=== PATIENT | female | born 1960 | race African-American/Black ===

== ENCOUNTER 2017-07-18 02:10 | Emergency (ER) | payer MEDICAID ==
[~2017-07-18] VITALS: Ht 160 cm; Wt 120.4 kg
[2017-07-18] MEDS ORDERED: DIOVAN320 MG PO (02:32)
[2017-07-18] MEDS ORDERED: AMLODIPINE5 MG PO (02:32)
[2017-07-18] MEDS ORDERED: LEVOTHYROXIN75 MCG PO (02:33)
[2017-07-18] MEDS ORDERED: MECLIZINE HCL25 MG PO (02:33)
[2017-07-18] MEDS ORDERED: MAG OXIDE400 MG PO (02:34)
[2017-07-18] MEDS ORDERED: OMEPRAZOLE20 M2 PO (02:34)
[2017-07-18] MEDS ORDERED: GABAPENTIN100 MG PO (02:34)
[2017-07-18] MEDS ORDERED: LASIX 40 MG TAB40 MG PO (02:35)
[2017-07-18] MEDS ORDERED: METFORMIN500 MG PO (02:36)
[2017-07-18] MEDS ORDERED: ATORVASTATIN CA40 MG PO (02:36)
[2017-07-18] MEDS ORDERED: LEVEMIR100 UNIT/M SC ×2 (02:37→02:38)
[2017-07-18] MEDS ORDERED: MICRO-K10 MEQ PO (02:37)
[2017-07-18] MEDS ORDERED: VICTOZA18 MG/3 ML SC (02:39)
[2017-07-18] MEDS ORDERED: HYSINGLA ER20 MG PO (02:41)
[2017-07-18 02:45] LABS: HEMOGLOBIN 11.9 g/dl (12.0-16.0); IMMATURE GRANULOCYTES 0.1 % (0.0-1.0); MEAN CELL VOLUME 80.2 fL CALC (80.0-100.0); MEAN CORPUSCULAR HGB 26.5 pG CALC (26.0-32.0); MEAN CORPUSCULAR HGB CONC 33.1 g/L CALC (32.0-36.0); NEUT# 2.85 thou/uL (2.00-7.15); RED BLOOD COUNT 4.49 mill/uL (4.20-5.60); RED CELL DISTRI WIDTH 13.2 % (11.5-15.5)
[2017-07-18 02:54] LABS: ALBUMIN 3.9 g/dL (3.2-5.0); ALKALINE PHOSPHATASE 37 u/l (38-126); AMYLASE 41 u/l (30-110); ANION GAP 18 (6-22 (CALC)); BILIRUBIN, TOTAL 0.7 mg/dL (0.0-1.4); BUN 16 mg/dL (7-17); BUN/CREATININE RATIO 21 (12-20 (CALC)); CALCIUM 9.5 mg/dL (8.4-10.2); CARBON DIOXIDE 22 mmol/l (22-30); CHLORIDE 110 mmol/l (95-108); CREATININE 0.8 mg/dL (0.5-1.0); GFR > 60 ML/MIN (>=60 (CALC)); GFR FOR AFR.AMER. > 60 ML/MIN (>=60 (CALC)); GLUCOSE 192 mg/dL (65-105); LIPASE 219 u/l (23-300); POTASSIUM 3.1 mmol/l (3.5-5.1); SGOT/AST 22 u/l (14-36); SGPT/ALT 47 u/l (9-52); SODIUM 147 mmol/l (137-146); TOTAL PROTEIN 6.4 g/dL (6.3-8.2)
[2017-07-18 02:56] LABS: PROTHROMBIN TIME 10.5 SECONDS (9.0-12.5)
[2017-07-18 03:18] LABS: URINE BILIRUBIN - DIPSTICK NEGATIVE (NEGATIVE); URINE BLOOD DIPSTICK NEGATIVE (NEGATIVE); URINE CLARITY TURBID; URINE COLOR YELLOW; URINE GLUCOSE - DIPSTICK NEGATIVE (NEGATIVE); URINE KETONE NEGATIVE (NEGATIVE); URINE LEUK ESTERASE NEGATIVE (NEGATIVE); URINE PROTEIN - DIPSTICK NEGATIVE (NEG-TRACE); URINE UROBILINOGEN - DIPSTICK 0.2 E.U./dL (0.2)
[2017-07-18 03:22] LABS: URINE NITRITE - DIPSTICK POSITIVE (Negative)
[2017-07-18 03:25] LABS: URINE BACTERIA MANY hpf; URINE RBC 0-2 RBC/hpf (0-5); URINE SQUAMOUS EPITHELIAL CELL MANY EPI/hpf (0-FEW)
[2017-07-18] MEDS ORDERED: METRONIDAZOL500 MG PO (05:38)
[2017-07-18] MEDS ORDERED: CIPROFLOXACN500 MG PO (05:38)
[2017-07-18] MEDS ORDERED: ZOFRAN ODT4 MG PO (05:38)
[2017-07-18 06:42] VITALS: BP 146/75
== END 2017-07-18 06:50 | disposition home or self-care (01) | DRG 690 ==
LOC: ED 02:10
PROVIDERS: Emergency Medicine
DX: N39.0 Urinary tract infection, site not specified (principal); B96.20 Unspecified Escherichia coli [E. coli] as the cause of diseases classified elsewhere; K42.9 Umbilical hernia without obstruction or gangrene; K52.9 Noninfective gastroenteritis and colitis, unspecified; R11.2 Nausea with vomiting, unspecified; R10.13 Epigastric pain
CPT/HCPCS: Q9967; S0164

== ENCOUNTER 2018-09-23 15:33 | Emergency (ER) | payer OTHER ==
[~2018-09-23] VITALS: Ht 160 cm; Wt 150.0 kg
[~2018-09-23 15:33] MED LIST: AMLODIPINE5 MG PO; ATORVASTATIN CA40 MG PO; CIPROFLOXACN500 MG PO; DIOVAN320 MG PO; GABAPENTIN100 MG PO; HYSINGLA ER20 MG PO; LASIX 40 MG TAB40 MG PO; LEVEMIR100 UNIT/M SC; LEVOTHYROXIN75 MCG PO; MAG OXIDE400 MG PO; MECLIZINE HCL25 MG PO; METFORMIN500 MG PO; METRONIDAZOL500 MG PO; MICRO-K10 MEQ PO; OMEPRAZOLE20 M2 PO; VICTOZA18 MG/3 ML SC; ZOFRAN ODT4 MG PO
[2018-09-23] MEDS ORDERED: DOXYCYC MONO100 M2 PO (16:11)
[2018-09-23] MEDS ORDERED: CHERATUSSIN PO (16:11)
[2018-09-23] MEDS ORDERED: DIFLUCAN100 M1 PO (16:13)
[2018-09-23 16:20] VITALS: BP 142/71
== END 2018-09-23 16:20 | disposition home or self-care (01) ==
LOC: ED 15:33
DX: J06.9 Acute upper respiratory infection, unspecified (principal); J40 Bronchitis, not specified as acute or chronic; B37.3 Candidiasis of vulva and vagina; R09.81 Nasal congestion; R05 Cough; R50.9 Fever, unspecified; R09.89 Other specified symptoms and signs involving the circulatory and respiratory systems; F17.210 Nicotine dependence, cigarettes, uncomplicated

== ENCOUNTER 2019-01-06 16:28 | Emergency (ER) | payer OTHER ==
[~2019-01-06] VITALS: Ht 160 cm; Wt 127.0 kg
[~2019-01-06 16:28] MED LIST changes: +CHERATUSSIN PO; +DIFLUCAN100 M1 PO; +DOXYCYC MONO100 M2 PO
[2019-01-06 17:11] LABS: HEMATOCRIT 35.5 % (37.0-47.0); HEMOGLOBIN 11.3 g/dl (12.0-16.0); IMMATURE GRANULOCYTES 0.3 % (0.0-5.0); MEAN CELL VOLUME 82.2 fL CALC (80.0-100.0); MEAN CORPUSCULAR HGB 26.2 pG CALC (26.0-32.0); MEAN CORPUSCULAR HGB CONC 31.8 g/L CALC (32.0-36.0); NEUT# 3.47 thou/uL (2.00-7.15); RED BLOOD COUNT 4.32 mill/uL (4.20-5.60); RED CELL DISTRI WIDTH 13.6 % (11.5-15.5)
[2019-01-06 17:29] LABS: ALKALINE PHOSPHATASE 48 u/l (38-126); BILIRUBIN, TOTAL 0.5 mg/dL (0.0-1.4); BUN 28 mg/dL (7-17); BUN/CREATININE RATIO 23 (12-20 (CALC)); CARBON DIOXIDE 27 mmol/l (22-30); CHLORIDE 103 mmol/l (95-108); CREATININE 1.2 mg/dL (0.5-1.0); GFR 46 ML/MIN (>=60 (CALC)); GFR FOR AFR.AMER. 56 ML/MIN (>=60 (CALC)); SGOT/AST 37 u/l (14-36)
[2019-01-06 17:32] LABS: ANION GAP 12 (6-22 (CALC)); POTASSIUM 3.8 mmol/l (3.5-5.1); SODIUM 138 mmol/l (137-146)
[2019-01-06 17:41] LABS: MYOGLOBIN 28 ng/mL (0 - 62)
[2019-01-06] MEDS ORDERED: ROBITUSSIN AC10 ML PO (18:42)
[2019-01-06] MEDS ORDERED: FLONASE AL50 MCG/ACT (18:42)
[2019-01-06] MEDS ORDERED: CEPHALEXIN500 M1 PO (18:42)
[2019-01-06] MEDS ORDERED: MEDDOSEPAK PO (18:56)
[2019-01-06 19:32] VITALS: BP 148/55
== END 2019-01-06 19:32 | disposition home or self-care (01) ==
LOC: ED 16:28
PROVIDERS: Emergency Medicine
DX: J06.9 Acute upper respiratory infection, unspecified (principal); I10 Essential (primary) hypertension; J44.9 Chronic obstructive pulmonary disease, unspecified; E11.9 Type 2 diabetes mellitus without complications; E03.9 Hypothyroidism, unspecified; F17.200 Nicotine dependence, unspecified, uncomplicated; Z79.4 Long term (current) use of insulin

== ENCOUNTER 2019-05-03 20:56 | Inpatient (IN) | payer OTHER ==
[~2019-05-03] VITALS: Ht 160 cm; Wt 114.1 kg
[~2019-05-03 20:56] MED LIST changes: +CEPHALEXIN500 M1 PO; +FLONASE AL50 MCG/ACT; +MEDDOSEPAK PO; +ROBITUSSIN AC10 ML PO
--- NOTE | 2019-05-03 20:56 | NUR ---
PATIENT TO ROOM 9 VIA EMS STRETCHER. PATIENT ARRIVES ON CPAP. PLACED ON MONITOR. PAITENT IS DIAPHORETIC, SITTING IN TRIPOD POSITION. MD AT BEDSIDE FOR EVAL.
[2019-05-03 21:15] LABS: HEMATOCRIT 40.4 % (37.0-47.0); HEMOGLOBIN 12.9 g/dl (12.0-16.0); IMMATURE GRANULOCYTES 0.3 % (0.0-5.0); MEAN CELL VOLUME 81.6 fL CALC (80.0-100.0); MEAN CORPUSCULAR HGB 26.1 pG CALC (26.0-32.0); MEAN CORPUSCULAR HGB CONC 31.9 g/L CALC (32.0-36.0); NEUT# 3.56 thou/uL (2.00-7.15); RED BLOOD COUNT 4.95 mill/uL (4.20-5.60); RED CELL DISTRI WIDTH 12.8 % (11.5-15.5)
--- NOTE | 2019-05-03 21:26 | NUR ---
AT PATIENT ARRIVAL, ABG DRAWN, ANALYSED. RESULT GIVEN TO DR EDWARD. BIPAP SETTING BEFORE ABG 16/8 PRESSURE, RATE 16 AND 50% OXYGEN. WITH ABG RESULT , PRESURE INCREASED TO 20/10, RATE 20, FIO2 DROPPED TO 40%. BREATHING TREATMENT GIVEN WHILE ON BIPAP.
[2019-05-03 21:39] LABS: ALBUMIN 4.2 g/dL (3.2-5.0); BILIRUBIN, TOTAL 0.6 mg/dL (0.0-1.4); CREATININE 1.3 mg/dL (0.5-1.0); INTERNATIONAL NORMALIZED RATIO 0.9 RATIO (0.7-1.3); POTASSIUM 4.3 mmol/l (3.5-5.1); PROTHROMBIN TIME 9.5 SECONDS (9.0-12.5); TOTAL PROTEIN 7.7 g/dL (6.3-8.2)
--- NOTE | 2019-05-03 23:00 | NUR ---
Admission Note Report Given to: KIKI ESTRADA Transported by: Wheelchair X Stretcher Transported with: X Nurse Transporter X Patent IV X O2 X Supervisor [employer] TRANSPORTED ON BIPAP
--- NOTE | 2019-05-03 23:15 | NUR ---
PT ARRIVED TO UNIT VIA STRETCHER WITH ER STAFF AND RT; ALERT AND ORIENTED. BIPAP IN PLACE UPON ARRIVAL WITH SETTINGS OF 20, RATE 20, FI02 28%. PT WAS ABLE TO STAND AND PIVOT FROM STRETCHER TO BED WITH MINIMAL ASSIST. DENIES PAIN. RESPIRATIONS LABORED WITH EXERTION. C/O HER CHRONIC ARTHRITIC PAIN TO KNEES, HIPS, AND HANDS. PURWIK CATHETER IN PLACE AND APPLIED TO SUCTION. MAIN COMPLAINT FROM PT IS FEELING DIZZY; PT REPORTS THAT SHE HAS VERTIGO AND ASKS SEVERAL TIMES FOR HER MECLIZINE. ORDER RECEIVED. PT MOANING R/T HER DIZZINESS. ORIENTED TO CALL LIGHT SYSTEM. CONNECTED TO ATTACHMENTS. VS STABLE. 100% OXYGEN SATURATION.
[2019-05-03 23:29] LABS: URINE BILIRUBIN - DIPSTICK NEGATIVE (NEGATIVE); URINE BLOOD DIPSTICK NEGATIVE (NEGATIVE); URINE GLUCOSE - DIPSTICK NEGATIVE (NEGATIVE); URINE KETONE NEGATIVE (NEGATIVE); URINE LEUK ESTERASE NEGATIVE (NEGATIVE); URINE NITRITE - DIPSTICK NEGATIVE (Negative); URINE PROTEIN - DIPSTICK TRACE mg/dL (NEG-TRACE); URINE UROBILINOGEN - DIPSTICK 0.2 E.U./dL (0.2)
[2019-05-03 23:30] VITALS: BP 125/105
[2019-05-03 23:30] LABS: URINE COLOR STRAW
--- NOTE | 2019-05-03 23:30 | NUR ---
MARIBEL UNSUCCESSFUL; ATTEMPTED TO APPLY A NEW ONE AND PT DECLINES STATING THAT THIS IS THE THIRD ONE AND NON OF THEM HAVE WORKED PROPERLY. PT REQUESTS TO USE BSC. WITH 2 PERSON STAND BY ASSIST PT ASSISTED TO BSC TO VOID 500ML CLEAR PALE YELLOW URINE. ASSISTED BACK INTO BED. ZITHROMAX INFUSING AT THIS TIME. ASSESSMENT COMPLETE. LUNGS ARE DIMINISHED IN THE BASES WITH EXPIRATORY WHEEZING TO RIGHT UPPER LOBES.
[2019-05-03 23:45] VITALS: BP 143/88
--- NOTE | 2019-05-03 23:45 | NUR ---
DURING ADMISSION ASSESSMENT PT REPORTS THAT SHE CURRENTLY LIVES ALONE BECAUSE HER BOYFRIEND IS IN A MENTAL INSTITUTION AFTER BEING [facility] ACTED. PT STATES THAT SHE DOES NOT FEEL SAFE AT HOME BECAUSE SHE HAS SYNCOPAL FALLS R/T HER VERTIGO AND SHE IS AFRAID THAT WILL FALL AND NO ONE WILL KNOW. WILL PLACE CASE MANAGEMENT CONSULT.
[2019-05-04] VITALS (13 sets, daily range): BP systolic 119–162; BP diastolic 62–88
--- NOTE | 2019-05-04 | NUR ---
MECLIZINE ADMINISTERED FOR SEVERE DIZZINESS. BIPAP REMOVED FOR PO MEDICATION AND WASH CLOTH PROVIDED TO WASH FACE. PT NOW REPORTS NAUSEA; EMESIS BAG WITHIN REACH AND BIPAP LEFT OFF FOR NOW UNTIL NAUSEA SUBSIDES. PT GRABBING ONTO SIDE RAILS OF BED STATING THAT IT FEELS LIKE THE WHOLE BED IS SPINNING.
--- NOTE | 2019-05-04 00:30 | NUR ---
NAUSEA HAS SUBSIDED AND PT RESTING MORE COMFORTABLY ON LEFT SIDE. BIPAP REAPPLIED AND RT NOTIFIED; SETTINGS REMAIN THE SAME. RESPIRATORY RATE AT 22 AND OXYGEN SATURATION 100%. PLAN OF CARE DISCUSSED. PT ENCOURAGED TO VERBALIZE CONCERNS. STATES UNDERSTANDING. SAFETY MEASURES IN PLACE. CALL LIGHT WITHIN REACH.
--- NOTE | 2019-05-04 02:24 | NUR ---
PT HEARD MOANING AND BIPAP ALARM SOUNDING; FOUND SITTING ON VERY EDGE OF BED ATTEMPTING TO GET UP. PT STATES, "I AM PEEING." URINATING ON BED AND FLOOR. PT ASSISTED TO BSC FOR HYGIENE AND FULL LINEN CHANGE. NO RESTING IN BED ON LEFT SIDE WITH HOB ELEVATED AND BIPAP MASK ON AND SECURE.
--- NOTE | 2019-05-04 02:41 | NUR ---
LAB AT BEDSIDE.
--- NOTE | 2019-05-04 03:42 | NUR ---
LAB NOTIFIED NURSE OF ELEVATED TROPONIN 0.180. PT DENIES CHEST PAIN; ASYMPTOMATIC. VS STABLE. REPEAT EKG COMPLETED BY RT WITH NO CHANGES NOTED FROM PREVIOUS ONE. ACCU CHECK 282. DR. EDWARD NOTIFIED; NEW ORDERS FOR 4 ASA AND REPEAT CH7 AND TROPONIN THIS MORNING. WILL CONTINUE TO MONITOR.
--- NOTE | 2019-05-04 05:36 | NUR ---
RT AT BEDSIDE FOR BREATHING TREATMENT.
[2019-05-04 06:35] LABS: HEMATOCRIT 37.4 % (37.0-47.0); IMMATURE GRANULOCYTES 0.5 % (0.0-5.0); MEAN CELL VOLUME 81.5 fL CALC (80.0-100.0); MEAN CORPUSCULAR HGB 26.1 pG CALC (26.0-32.0); MEAN CORPUSCULAR HGB CONC 32.1 g/L CALC (32.0-36.0); NEUT# 7.36 thou/uL (2.00-7.15); RED BLOOD COUNT 4.59 mill/uL (4.20-5.60)
[2019-05-04 06:41] LABS: CREATININE 1.2 mg/dL (0.5-1.0); POTASSIUM 4.5 mmol/l (3.5-5.1)
--- NOTE | 2019-05-04 07:30 | NUR ---
pt resting in bed with eyes closed; easily aroused; very anxious when aroused; pt offers no complaints; assessment completed at this time; pt alert and oriented; denies pain; denies nausea or sob; resp even and unlabored; lungs clear/ diminished bases; skin color wnl; bipap intact with settings of 20/10, rate 20 28% FiO2; converted to 4L nc per RT Mike; hr reg; strong pulses; no edema noted; sr/ inverted t waves on monitor; abd soft/distended with bs present; no bm noted per movie writer; pt voiding clear yellow urine without complication; bsc; #20 ems site flushed and patent to lac; no redness or edema noted at site; pt yelling "I need my meclizine and juice"; plan of care/ am meds explained; pt unable to produce list of home meds; staff will attempt to obtain meds list from [facility]; call light within reach; will continue to monitor
--- NOTE | 2019-05-04 07:50 | NUR ---
Dr Hughes notified of accucheck 294 with no coverage ordered; orders recevied
--- NOTE | 2019-05-04 08:01 | NUR ---
pt awake in bed; continues to yell out frequently for various needs; again, call light explained; check writer salesperson has explained to pt, there are other sick pts in the unit and to cut down on the outburst/yelling; pt states "they say I got a big mouth"; sr on monitor; iv intact; call light within reach; will continue to monitor
[2019-05-04] MEDS ORDERED: METFORMIN500 MG PO (09:23)
[2019-05-04] MEDS ORDERED: TELMISARTAN40 MG PO (09:23)
[2019-05-04] MEDS ORDERED: VENTOLIN HFA IN (09:25)
--- NOTE | 2019-05-04 09:25 | NUR ---
Prasanth Lora CHIN STRAP SEWER present at bedside to assess pt and discuss plan of care
[2019-05-04] MEDS ORDERED: GABAPENTIN100 MG PO (09:26)
[2019-05-04] MEDS ORDERED: TRAMADOL HCL50 MG PO (09:27)
[2019-05-04] MEDS ORDERED: LEVEMIR100 UNIT/M SC ×2 (09:28→09:29)
[2019-05-04] MEDS ORDERED: PREMARIN0.3 MG PO (09:29)
[2019-05-04] MEDS ORDERED: LIPITOR10 M1 PO (09:30)
[2019-05-04] MEDS ORDERED: MECLIZINE HCL25 MG PO (09:32)
[2019-05-04] MEDS ORDERED: KLOR-CON M2020 MEQ PO (09:33)
[2019-05-04] MEDS ORDERED: LEVOTHYROXIN75 MCG PO (09:34)
[2019-05-04] MEDS ORDERED: ALBUTEROL SUL0.083 % IN (09:36)
[2019-05-04] MEDS ORDERED: IPRATROPIUM BR0.02 % NEB (09:37)
[2019-05-04 09:58] LABS: CHOLESTEROL HDL RATIO 2.7 (<4.4 (CALC))
--- NOTE | 2019-05-04 10:16 | NUR ---
Dr Hughes in to assess pt and discuss plan of care; trop and risk factors reviewed; plan of care including transfer to [facility] explained; pt very very anxious/ crying/emotional; pt states her son had a heart attack and is having open heart surgery Monday; family at bedside attempting to calm pt; will continue to monitor
--- NOTE | 2019-05-04 10:53 | NUR ---
heparin gtt initiated at this time at 1000 units/hr; no bolus given as per Dr Hughes order; heparin infusing via lac; staff to attempt additional iv access; transfer explained; consent obtained; will continue to monitor
--- NOTE | 2019-05-04 11:03 | NUR ---
awake in bed; offers no complaints; accucheck of 330; insulin per protocol; staff x2 has attempted tp gain additional iv access without success; pt refusing additional attempts; will continue to monitor
--- NOTE | 2019-05-04 11:32 | NUR ---
[facility] transport [facility] called; information provided; ETA 30 minutes
--- NOTE | 2019-05-04 11:45 | NUR ---
report called to HOWARD Santiago. direct number to this bond underwriter provided if any additional information is needed
--- NOTE | 2019-05-04 11:59 | NUR ---
awake in bed; offers no complaints; no apparent distress noted; o2 per nc; sr with inverted t wave on monitor; awaiting transport; call light within reach; will continue to monitor
--- NOTE | 2019-05-04 12:02 | NUR ---
pt very anxious; requesting meclizine prior to transfer; medicated with ativan as per orders
--- NOTE | 2019-05-04 12:20 | NUR ---
pt transferred to [facility] with [facility] transport in stable condition
== END 2019-05-04 12:20 | DRG 280 ==
LOC: ED 20:56 → ED-I 21:26 → ED 21:26 → ED-I 22:20 → ED 22:39 → ICU 22:40
PROVIDERS: Family Medicine; Nurse Practitioner Family; ADMIT Internal Medicine; ATTEND Internal Medicine
PROC: 5A09357 Assistance with Respiratory Ventilation, Less than 24 Consecutive Hours, Continuous Positive Airway Pressure (ICD-10-PCS; principal; 2019-05-03)
DX: I21.4 Non-ST elevation (NSTEMI) myocardial infarction (principal); J96.22 Acute and chronic respiratory failure with hypercapnia; J18.9 Pneumonia, unspecified organism; J96.21 Acute and chronic respiratory failure with hypoxia; Z68.41 Body mass index [BMI] 40.0-44.9, adult; N17.9 Acute kidney failure, unspecified; E87.2 Acidosis; J43.9 Emphysema, unspecified; E11.22 Type 2 diabetes mellitus with diabetic chronic kidney disease; I24.8 Other forms of acute ischemic heart disease; I12.9 Hypertensive chronic kidney disease with stage 1 through stage 4 chronic kidney disease, or unspecified chronic kidney disease; I16.0 Hypertensive urgency; N18.2 Chronic kidney disease, stage 2 (mild); E03.9 Hypothyroidism, unspecified; D57.3 Sickle-cell trait; E11.40 Type 2 diabetes mellitus with diabetic neuropathy, unspecified; G47.33 Obstructive sleep apnea (adult) (pediatric); F17.210 Nicotine dependence, cigarettes, uncomplicated; E78.5 Hyperlipidemia, unspecified; E66.01 Morbid (severe) obesity due to excess calories; F14.10 Cocaine abuse, uncomplicated; Z79.4 Long term (current) use of insulin
CPT/HCPCS: J1644; J1650; J2060

== ENCOUNTER 2020-09-02 12:15 | Emergency (ER) | payer OTHER ==
[~2020-09-02] VITALS: Ht 160 cm; Wt 121.8 kg
[~2020-09-02 12:15] MED LIST changes: +ALBUTEROL SUL0.083 % IN; +IPRATROPIUM BR0.02 % NEB; +KLOR-CON M2020 MEQ PO; +LIPITOR10 M1 PO; +PREMARIN0.3 MG PO; +TELMISARTAN40 MG PO; +TRAMADOL HCL50 MG PO; +VENTOLIN HFA IN
[2020-09-02] MEDS ORDERED: TRAMADOL HYDROC50 M1 PO (14:14)
[2020-09-02 14:32] VITALS: BP 136/82
== END 2020-09-02 14:32 | disposition home or self-care (01) ==
LOC: ED 12:15
DX: M25.512 Pain in left shoulder (principal); I10 Essential (primary) hypertension; J44.9 Chronic obstructive pulmonary disease, unspecified; E03.9 Hypothyroidism, unspecified; D57.3 Sickle-cell trait; E11.9 Type 2 diabetes mellitus without complications; F17.200 Nicotine dependence, unspecified, uncomplicated

== ENCOUNTER 2021-02-04 | Emergency (ER) | payer OTHER ==
[~2021-02-04] MED LIST changes: +TRAMADOL HYDROC50 M1 PO
[2021-02-04 20:49] LABS: HEMATOCRIT 37.3 % (37.0-47.0); IMMATURE GRANULOCYTES 0.2 % (0.0-5.0); MEAN CELL VOLUME 79.7 fL CALC (80.0-100.0); MEAN CORPUSCULAR HGB 25.6 pG CALC (26.0-32.0); MEAN CORPUSCULAR HGB CONC 32.2 g/dL CAL (32.0-36.0); NEUT# 2.22 thou/uL (2.00-7.15); RED BLOOD COUNT 4.68 mill/uL (4.20-5.60); RED CELL DISTRI WIDTH 13.2 % (11.5-15.5)
[2021-02-04 20:50] LABS: URINE BILIRUBIN - DIPSTICK NEGATIVE (NEGATIVE); URINE BLOOD DIPSTICK NEGATIVE (NEGATIVE); URINE COLOR YELLOW; URINE GLUCOSE - DIPSTICK NEGATIVE (NEGATIVE); URINE KETONE NEGATIVE (NEGATIVE); URINE PH 7.5 (4.5-8.0); URINE PROTEIN - DIPSTICK NEGATIVE (NEG-TRACE)
[2021-02-04 20:51] LABS: URINE LEUK ESTERASE SMALL (NEGATIVE); URINE NITRITE - DIPSTICK NEGATIVE (Negative)
[2021-02-04 20:59] LABS: URINE BACTERIA RARE hpf; URINE EPITHELIAL CELLS FEW EPI/hpf (0-FEW); URINE RBC 0-2 RBC/hpf (0-5)
[2021-02-04 21:03] LABS: ALKALINE PHOSPHATASE 47 u/l (38-126); ANION GAP 12 (6-22 (CALC)); BILIRUBIN, TOTAL 0.7 mg/dL (0.0-1.4); BUN 12 mg/dL (7-17); BUN/CREATININE RATIO 12 (12-20 (CALC)); CARBON DIOXIDE 26 mmol/l (22-30); CHLORIDE 107 mmol/l (95-108); GFR 57 ML/MIN (>=60 (CALC)); GFR FOR AFR.AMER. > 60 ML/MIN (>=60 (CALC)); POTASSIUM 3.6 mmol/l (3.5-5.1); SGOT/AST 23 u/l (14-36); SODIUM 141 mmol/l (137-146); TOTAL PROTEIN 6.7 g/dL (6.3-8.2)
[2021-02-04] MEDS ORDERED: VOLTAREN75 MG PO (22:39)
[2021-02-04] MEDS ORDERED: ORPHENADRINE100 MG PO (22:39)
== END 2021-02-04 23:19 | disposition home or self-care (01) ==
PROVIDERS: Family Medicine
DX: S39.012A Strain of muscle, fascia and tendon of lower back, initial encounter (principal); I10 Essential (primary) hypertension; J44.9 Chronic obstructive pulmonary disease, unspecified; E11.9 Type 2 diabetes mellitus without complications; E03.9 Hypothyroidism, unspecified; D57.3 Sickle-cell trait; F17.200 Nicotine dependence, unspecified, uncomplicated; R82.71 Bacteriuria; X58.XXXA Exposure to other specified factors, initial encounter

== ENCOUNTER 2021-12-02 16:35 | Emergency (ER) | payer OTHER ==
[2021-12-02] VITALS (9 sets, daily range): BP systolic 138–173; BP diastolic 69–104
[~2021-12-02] VITALS: Ht 160 cm; Wt 68.2 kg
[~2021-12-02 16:35] MED LIST changes: +ORPHENADRINE100 MG PO; +VOLTAREN75 MG PO
[2021-12-02 17:38] LABS: HEMOGLOBIN 12.2 g/dl (12.0-16.0); MEAN CELL VOLUME 82.8 fL CALC (80.0-100.0); MEAN CORPUSCULAR HGB 26.6 pG CALC (26.0-32.0); MEAN CORPUSCULAR HGB CONC 32.1 g/dL CAL (32.0-36.0); NEUT# 0.88 thou/uL (2.00-7.15); RED BLOOD COUNT 4.59 mill/uL (4.20-5.60); RED CELL DISTRI WIDTH 12.5 % (11.5-15.5)
[2021-12-02 17:54] LABS: ALKALINE PHOSPHATASE 45 u/l (38-126); BILIRUBIN, TOTAL 0.4 mg/dL (0.0-1.4); BUN 17 mg/dL (7-17); BUN/CREATININE RATIO 12 (12-20 (CALC)); CHLORIDE 111 mmol/l (95-108); CREATININE 1.4 mg/dL (0.5-1.0); GFR 38 ML/MIN (>=60 (CALC)); GFR FOR AFR.AMER. 46 ML/MIN (>=60 (CALC)); SGOT/AST 27 u/l (14-36); SODIUM 143 mmol/l (137-146); TOTAL PROTEIN 7.2 g/dL (6.3-8.2)
[2021-12-02 17:58] LABS: ANION GAP 15 (6-22 (CALC)); CARBON DIOXIDE 21 mmol/l (22-30); POTASSIUM 3.5 mmol/l (3.5-5.1)
[2021-12-02] MEDS ORDERED: DIFLUCAN150 MG PO (18:42)
[2021-12-02] MEDS ORDERED: ZPAK PO (18:42)
[2021-12-02] MEDS ORDERED: IMODIUM A-D2 M3 PO (18:42)
[2021-12-03] MEDS ORDERED: DECADRON6 MG PO (17:22)
== END 2021-12-02 19:14 | disposition home or self-care (01) ==
LOC: ED 16:35
PROVIDERS: Family Medicine
DX: U07.1 COVID-19 (principal); R19.7 Diarrhea, unspecified; R06.02 Shortness of breath; R05.9 Cough, unspecified; B37.3 Candidiasis of vulva and vagina; I10 Essential (primary) hypertension; E11.9 Type 2 diabetes mellitus without complications; J44.9 Chronic obstructive pulmonary disease, unspecified; E03.9 Hypothyroidism, unspecified; D57.3 Sickle-cell trait; F17.210 Nicotine dependence, cigarettes, uncomplicated; I25.2 Old myocardial infarction

== ENCOUNTER 2022-03-13 15:36 | Emergency (ER) | payer OTHER ==
[2022-03-13] VITALS (7 sets, daily range): BP systolic 114–158; BP diastolic 61–88
[~2022-03-13] VITALS: Ht 160 cm; Wt 97.3 kg
[~2022-03-13 15:36] MED LIST changes: +DECADRON6 MG PO; +DIFLUCAN150 MG PO; +IMODIUM A-D2 M3 PO; +ZPAK PO
[2022-03-13] MEDS ORDERED: MEDDOSEPAK PO (17:57)
[2022-03-13] MEDS ORDERED: ZPAK PO (17:57)
[2022-03-13] MEDS ORDERED: TESSALON PERLE100 MG PO (17:57)
== END 2022-03-13 18:54 | disposition home or self-care (01) ==
LOC: ED 15:36
DX: J40 Bronchitis, not specified as acute or chronic (principal); I10 Essential (primary) hypertension; J44.9 Chronic obstructive pulmonary disease, unspecified; E11.9 Type 2 diabetes mellitus without complications; E03.9 Hypothyroidism, unspecified; D57.3 Sickle-cell trait; F17.200 Nicotine dependence, unspecified, uncomplicated; Z86.16 Personal history of COVID-19; Z20.822 Contact with and (suspected) exposure to COVID-19

== ENCOUNTER 2022-06-14 12:51 | Emergency (ER) | payer OTHER ==
[~2022-06-14] VITALS: Ht 160 cm; Wt 100.0 kg
[~2022-06-14 12:51] MED LIST changes: +TESSALON PERLE100 MG PO
[2022-06-14 12:57] VITALS: BP 160/79
[2022-06-14 13:01] VITALS: BP 150/84
[2022-06-14 14:32] LABS: URINE BILIRUBIN - DIPSTICK NEGATIVE (NEGATIVE); URINE BLOOD DIPSTICK NEGATIVE (NEGATIVE); URINE COLOR YELLOW; URINE GLUCOSE - DIPSTICK >=1000 mg/dL (NEGATIVE); URINE KETONE NEGATIVE (NEGATIVE); URINE LEUK ESTERASE NEGATIVE (NEGATIVE); URINE NITRITE - DIPSTICK NEGATIVE (Negative); URINE PROTEIN - DIPSTICK NEGATIVE (NEG-TRACE); URINE SPECIFIC GRAVITY <=1.005; URINE UROBILINOGEN - DIPSTICK 0.2 E.U./dL (0.2)
[2022-06-14 14:36] LABS: HEMATOCRIT 36.4 % (37.0-47.0); HEMOGLOBIN 12.3 g/dl (12.0-16.0); IMMATURE GRANULOCYTES 0.3 % (0.0-5.0); MEAN CELL VOLUME 76.6 fL CALC (80.0-100.0); MEAN CORPUSCULAR HGB 25.9 pG CALC (26.0-32.0); MEAN CORPUSCULAR HGB CONC 33.8 g/dL CAL (32.0-36.0); NEUT# 4.04 thou/uL (2.00-7.15); RED BLOOD COUNT 4.75 mill/uL (4.20-5.60); RED CELL DISTRI WIDTH 11.7 % (11.5-15.5)
[2022-06-14 14:56] LABS: ALBUMIN 3.9 g/dL (3.2-5.0); BILIRUBIN, TOTAL 0.5 mg/dL (0.0-1.4); CREATININE 1.2 mg/dL (0.5-1.0); POTASSIUM 4.1 mmol/l (3.5-5.1); TOTAL PROTEIN 6.8 g/dL (6.3-8.2)
[2022-06-14 15:33] VITALS: BP 150/84
== END 2022-06-14 15:40 | disposition left against medical advice (07) ==
LOC: ED 12:51
PROVIDERS: Family Medicine; Nurse Practitioner
DX: E11.65 Type 2 diabetes mellitus with hyperglycemia (principal); I11.0 Hypertensive heart disease with heart failure; I50.9 Heart failure, unspecified; J44.9 Chronic obstructive pulmonary disease, unspecified; E03.9 Hypothyroidism, unspecified; D57.3 Sickle-cell trait; E78.5 Hyperlipidemia, unspecified; F41.9 Anxiety disorder, unspecified; F17.210 Nicotine dependence, cigarettes, uncomplicated; Z91.19 Patient's noncompliance with other medical treatment and regimen; Z20.822 Contact with and (suspected) exposure to COVID-19; T50.2X6A Underdosing of carbonic-anhydrase inhibitors, benzothiadiazides and other diuretics, initial encounter; Z91.128 Patient's intentional underdosing of medication regimen for other reason

== ENCOUNTER 2022-07-07 07:08 | Emergency (ER) | payer OTHER ==
[~2022-07-07] VITALS: Ht 160 cm; Wt 102.2 kg
[2022-07-07 07:24] VITALS: BP 141/90
[2022-07-07 07:54] LABS: URINE BILIRUBIN - DIPSTICK NEGATIVE (NEGATIVE); URINE COLOR YELLOW; URINE GLUCOSE - DIPSTICK NEGATIVE (NEGATIVE); URINE KETONE NEGATIVE (NEGATIVE); URINE PH 6.5 (4.5-8.0); URINE PROTEIN - DIPSTICK 30 mg/dL (NEG-TRACE); URINE UROBILINOGEN - DIPSTICK 0.2 E.U./dL (0.2)
[2022-07-07 07:58] LABS: URINE LEUK ESTERASE MODERATE (NEGATIVE); URINE NITRITE - DIPSTICK NEGATIVE (Negative)
[2022-07-07 08:01] VITALS: BP 197/110
[2022-07-07 08:16] VITALS: BP 197/117
[2022-07-07 08:21] LABS: URINE BLOOD DIPSTICK NEGATIVE (NEGATIVE)
[2022-07-07 08:23] LABS: URINE EPITHELIAL CELLS MANY EPI/hpf (0-FEW); URINE RBC 0-2 RBC/hpf (0-5)
[2022-07-07 08:24] LABS: URINE BACTERIA MODERATE hpf
[2022-07-07] MEDS ORDERED: KEFLEX500 MG PO (08:29)
[2022-07-07] MEDS ORDERED: PYRIDIUM200 MG PO (08:29)
[2022-07-07 08:50] VITALS: BP 167/97
== END 2022-07-07 08:51 | disposition home or self-care (01) ==
LOC: ED 07:08
PROVIDERS: Emergency Medicine
DX: N39.0 Urinary tract infection, site not specified (principal); B96.1 Klebsiella pneumoniae [K. pneumoniae] as the cause of diseases classified elsewhere; I11.0 Hypertensive heart disease with heart failure; I50.9 Heart failure, unspecified; E11.9 Type 2 diabetes mellitus without complications; J44.9 Chronic obstructive pulmonary disease, unspecified; E03.9 Hypothyroidism, unspecified; G47.30 Sleep apnea, unspecified; D57.3 Sickle-cell trait; F17.210 Nicotine dependence, cigarettes, uncomplicated

== ENCOUNTER 2022-09-11 00:16 | Inpatient (IN) | payer OTHER ==
[2022-09-11] VITALS (42 sets, daily range): BP systolic 114–225; BP diastolic 61–165
[~2022-09-11] VITALS: Ht 160 cm; Wt 102.2 kg
[~2022-09-11 00:16] MED LIST changes: +KEFLEX500 MG PO; +OZEMPIC4 MG SC; +PYRIDIUM200 MG PO
[2022-09-11 00:52] LABS: HEMATOCRIT 40.2 % (37.0-47.0); HEMOGLOBIN 12.8 g/dl (12.0-16.0); IMMATURE GRANULOCYTES 0.9 % (0.0-5.0); MEAN CELL VOLUME 82.9 fL CALC (80.0-100.0); MEAN CORPUSCULAR HGB 26.4 pG CALC (26.0-32.0); MEAN CORPUSCULAR HGB CONC 31.8 g/dL CAL (32.0-36.0); NEUT# 4.84 thou/uL (2.00-7.15); RED BLOOD COUNT 4.85 mill/uL (4.20-5.60); RED CELL DISTRI WIDTH 13.1 % (11.5-15.5)
[2022-09-11 01:05] LABS: ALBUMIN 4.3 g/dL (3.2-5.0); BILIRUBIN, TOTAL 0.5 mg/dL (0.0-1.4); CREATININE 1.5 mg/dL (0.5-1.0); TOTAL PROTEIN 7.6 g/dL (6.3-8.2)
[2022-09-11 01:40] LABS: URINE BILIRUBIN - DIPSTICK NEGATIVE (NEGATIVE); URINE BLOOD DIPSTICK TRACE-INTACT (NEGATIVE); URINE COLOR YELLOW; URINE GLUCOSE - DIPSTICK NEGATIVE (NEGATIVE); URINE KETONE NEGATIVE (NEGATIVE); URINE LEUK ESTERASE NEGATIVE (NEGATIVE); URINE PROTEIN - DIPSTICK 100 mg/dL (NEG-TRACE); URINE SPECIFIC GRAVITY 1.025; URINE UROBILINOGEN - DIPSTICK 0.2 E.U./dL (0.2)
[2022-09-11 01:50] LABS: URINE NITRITE - DIPSTICK POSITIVE (Negative)
[2022-09-11 01:51] LABS: URINE BACTERIA MANY hpf; URINE EPITHELIAL CELLS MODERATE EPI/hpf (0-FEW)
[2022-09-11 12:43] LABS: BILIRUBIN, TOTAL 0.5 mg/dL (0.0-1.4); CREATININE 1.3 mg/dL (0.5-1.0); POTASSIUM 4.3 mmol/l (3.5-5.1)
[2022-09-12] VITALS (42 sets, daily range): BP systolic 131–184; BP diastolic 71–117
[2022-09-12 04:58] LABS: HEMOGLOBIN 11.4 g/dl (12.0-16.0); MEAN CELL VOLUME 80.1 fL CALC (80.0-100.0); MEAN CORPUSCULAR HGB 26.7 pG CALC (26.0-32.0); MEAN CORPUSCULAR HGB CONC 33.3 g/dL CAL (32.0-36.0); RED BLOOD COUNT 4.27 mill/uL (4.20-5.60); RED CELL DISTRI WIDTH 13.5 % (11.5-15.5)
[2022-09-12 05:15] LABS: HEMATOCRIT 34.2 % (37.0-47.0)
[2022-09-12 05:23] LABS: ANION GAP 12 (6-22 (CALC)); BUN 21 mg/dL (8-23); BUN/CREATININE RATIO 20 (12-20 (CALC)); CARBON DIOXIDE 21 mmol/l (22-30); CHLORIDE 111 mmol/l (95-108); GFR FOR AFR.AMER. > 60 ML/MIN (>=60 (CALC)); GFR OTHER RACES 56 ML/MIN (>=60 (CALC)); MAGNESIUM 1.6 mg/dL (1.6-2.3); POTASSIUM 4.5 mmol/l (3.5-5.1); SODIUM 139 mmol/l (137-146)
[2022-09-13] VITALS (26 sets, daily range): BP systolic 128–179; BP diastolic 73–114
[2022-09-13 05:24] LABS: HEMATOCRIT 34.6 % (37.0-47.0); HEMOGLOBIN 11.6 g/dl (12.0-16.0); MEAN CELL VOLUME 78.8 fL CALC (80.0-100.0); MEAN CORPUSCULAR HGB 26.4 pG CALC (26.0-32.0); MEAN CORPUSCULAR HGB CONC 33.5 g/dL CAL (32.0-36.0); RED BLOOD COUNT 4.39 mill/uL (4.20-5.60); RED CELL DISTRI WIDTH 13.4 % (11.5-15.5)
[2022-09-13 06:07] LABS: ANION GAP 15 (6-22 (CALC)); BUN 25 mg/dL (8-23); BUN/CREATININE RATIO 26 (12-20 (CALC)); CARBON DIOXIDE 21 mmol/l (22-30); CHLORIDE 111 mmol/l (95-108); GFR FOR AFR.AMER. > 60 ML/MIN (>=60 (CALC)); GFR OTHER RACES 56 ML/MIN (>=60 (CALC)); MAGNESIUM 1.7 mg/dL (1.6-2.3); POTASSIUM 4.1 mmol/l (3.5-5.1); SODIUM 143 mmol/l (137-146)
[2022-09-13] MEDS ORDERED: KLONOPIN0.5 MG PO (15:18)
[2022-09-13] MEDS ORDERED: ABILIFY5 MG PO (15:18)
[2022-09-13] MEDS ORDERED: POT CHLORIDE20 ME2 PO (15:21)
[2022-09-13] MEDS ORDERED: WELLBUTRIN XL300 MG PO (15:23)
[2022-09-13] MEDS ORDERED: NEURONTIN400 MG PO (15:24)
[2022-09-13] MEDS ORDERED: LEVOTHYROXIN75 MC1 PO (15:25)
[2022-09-13] MEDS ORDERED: SYMBICORT 80-4.5MCG IN (15:27)
[2022-09-14] VITALS (22 sets, daily range): BP systolic 133–185; BP diastolic 59–111
[2022-09-14 06:33] LABS: ANION GAP 12 (6-22 (CALC)); BUN 22 mg/dL (8-23); BUN/CREATININE RATIO 20 (12-20 (CALC)); CARBON DIOXIDE 25 mmol/l (22-30); CHLORIDE 110 mmol/l (95-108); CREATININE 1.1 mg/dL (0.5-1.0); GFR FOR AFR.AMER. > 60 ML/MIN (>=60 (CALC)); GFR OTHER RACES 50 ML/MIN (>=60 (CALC)); MAGNESIUM 1.9 mg/dL (1.6-2.3); POTASSIUM 4.7 mmol/l (3.5-5.1); SODIUM 143 mmol/l (137-146)
[2022-09-15 05:02] VITALS: BP 122/69
[2022-09-15 05:43] LABS: HEMATOCRIT 37.5 % (37.0-47.0); HEMOGLOBIN 12.4 g/dl (12.0-16.0); MEAN CELL VOLUME 79.3 fL CALC (80.0-100.0); MEAN CORPUSCULAR HGB 26.2 pG CALC (26.0-32.0); MEAN CORPUSCULAR HGB CONC 33.1 g/dL CAL (32.0-36.0); RED BLOOD COUNT 4.73 mill/uL (4.20-5.60); RED CELL DISTRI WIDTH 13.3 % (11.5-15.5)
[2022-09-15 06:02] LABS: BUN 27 mg/dL (8-23); BUN/CREATININE RATIO 24 (12-20 (CALC)); CARBON DIOXIDE 24 mmol/l (22-30); CHLORIDE 109 mmol/l (95-108); CREATININE 1.1 mg/dL (0.5-1.0); GFR FOR AFR.AMER. > 60 ML/MIN (>=60 (CALC)); GFR OTHER RACES 50 ML/MIN (>=60 (CALC)); MAGNESIUM 1.9 mg/dL (1.6-2.3); SODIUM 142 mmol/l (137-146)
[2022-09-15 06:09] LABS: ANION GAP 13 (6-22 (CALC)); POTASSIUM 3.7 mmol/l (3.5-5.1)
[2022-09-15 07:18] VITALS: BP 123/67
[2022-09-15 09:11] VITALS: BP 123/67
[2022-09-15] MEDS ORDERED: ADLT ASA LOW81 MG PO (09:46)
[2022-09-15] MEDS ORDERED: LOSARTAN POTASS50 MG PO (09:46)
[2022-09-15] MEDS ORDERED: DIFLUCAN150 MG PO (09:46)
[2022-09-15] MEDS ORDERED: LOPRESSOR25 MG PO (09:46)
[2022-09-15] MEDS ORDERED: MEDDOSEPAK PO (09:47)
[2022-09-15] MEDS ORDERED: LASIX 40 MG TAB40 MG PO (09:48)
[2022-09-15] MEDS ORDERED: POT CHLORIDE20 ME2 PO (09:48)
[2022-09-15] MEDS ORDERED: LEVEMIR FL100 UNIT/M SC ×4 (09:50→09:51)
[2022-09-15] MEDS ORDERED: OZEMPIC4 MG SC (09:51)
[2022-09-15] MEDS ORDERED: LEVOFLOXACIN500MG PO (09:57)
[2022-09-15 10:30] VITALS: BP 153/58
== END 2022-09-15 11:02 | DRG 193 ==
LOC: ED 00:16 → ED-I 01:40 → ED 01:59 → ICU 02:00 → MS2 09-14 13:21
PROVIDERS: Emergency Medicine; ADMIT Internal Medicine; ATTEND Internal Medicine
PROC: 0T9B70Z Drainage of Bladder with Drainage Device, Via Natural or Artificial Opening (ICD-10-PCS; principal; 2022-09-11)
PROC: 5A09457 Assistance with Respiratory Ventilation, 24-96 Consecutive Hours, Continuous Positive Airway Pressure (ICD-10-PCS; 2022-09-11)
DX: J18.9 Pneumonia, unspecified organism (principal); I50.23 Acute on chronic systolic (congestive) heart failure; J96.02 Acute respiratory failure with hypercapnia; J96.01 Acute respiratory failure with hypoxia; J44.1 Chronic obstructive pulmonary disease with (acute) exacerbation; N39.0 Urinary tract infection, site not specified; E87.20 Acidosis, unspecified; J44.0 Chronic obstructive pulmonary disease with (acute) lower respiratory infection; I11.0 Hypertensive heart disease with heart failure; E11.65 Type 2 diabetes mellitus with hyperglycemia; E11.40 Type 2 diabetes mellitus with diabetic neuropathy, unspecified; G47.33 Obstructive sleep apnea (adult) (pediatric); F14.10 Cocaine abuse, uncomplicated; E03.9 Hypothyroidism, unspecified; D57.3 Sickle-cell trait; F17.200 Nicotine dependence, unspecified, uncomplicated; B96.1 Klebsiella pneumoniae [K. pneumoniae] as the cause of diseases classified elsewhere; I25.2 Old myocardial infarction; T50.1X6A Underdosing of loop [high-ceiling] diuretics, initial encounter; Z91.128 Patient's intentional underdosing of medication regimen for other reason; Z20.822 Contact with and (suspected) exposure to COVID-19
CPT/HCPCS: J1650

== ENCOUNTER 2023-11-27 12:13 | Emergency (ER) | payer OTHER ==
[~2023-11-27] VITALS: Ht 160 cm; Wt 104.0 kg
[~2023-11-27 12:13] MED LIST changes: +ABILIFY5 MG PO; +ADLT ASA LOW81 MG PO; +KLONOPIN0.5 MG PO; +LEVEMIR FL100 UNIT/M SC; +LEVOFLOXACIN500MG PO; +LEVOTHYROXIN75 MC1 PO; +LOPRESSOR25 MG PO; +LOSARTAN POTASS50 MG PO; +NEURONTIN400 MG PO; +POT CHLORIDE20 ME2 PO; +SYMBICORT 80-4.5MCG IN; +WELLBUTRIN XL300 MG PO
[2023-11-27 13:00] VITALS: BP 136/82
[2023-11-27] MEDS ORDERED: IPRATROPIUM-Albuterol 0.5MG-2.5MG/3 ML NEB ONE (13:00)
[2023-11-27] MEDS ORDERED: methylPREDNISolone SODIUM SUCC 125 MG/2 ML SDV IV ONE (13:00)
[2023-11-27] MEDS ORDERED: DEXTROMETHORPHAN-Guaifenesin 20-200 MG/10 ML UDC PO ONE (13:00)
[2023-11-27 13:25] LABS: BASO% 0.8 % (0-3); EOS% 2.3 % (0-8); HEMATOCRIT 35.7 % (37.0-47.0); HEMOGLOBIN 11.6 g/dl (12.0-16.0); IMMATURE GRANULOCYTES 0.3 % (0.0-5.0); LYMPH% 46.1 % (15-41); MEAN CORPUSCULAR HGB CONC 32.5 g/dL CAL (32.0-36.0); MONO% 8.8 % (2-13); NEUT# 1.66 thou/uL (2.00-7.15); NEUT% 41.7 % (42-76); RED BLOOD COUNT 4.3 mill/uL (4.20-5.60); RED CELL DISTRI WIDTH 14.1 % (11.5-15.5)
[2023-11-27 13:44] LABS: ALBUMIN 4.3 g/dL (3.2-5.0); ALKALINE PHOSPHATASE 55 u/l (38-126); ANION GAP 13 (6-22 (CALC)); BILIRUBIN, TOTAL 0.5 mg/dL (0.02-1.3); BUN 16 mg/dL (8-23); BUN/CREATININE RATIO 12 (12-20 (CALC)); CARBON DIOXIDE 22 mmol/l (22-30); CHLORIDE 113 mmol/l (95-108); CREATININE 1.3 mg/dL (0.5-1.0); GFR FOR AFR.AMER. 50 ML/MIN (>=60 (CALC)); GFR OTHER RACES 42 ML/MIN (>=60 (CALC)); POTASSIUM 4.2 mmol/l (3.5-5.1); SGOT/AST 28 u/l (9-36); SODIUM 143 mmol/l (137-146); TOTAL PROTEIN 7.4 g/dL (6.3-8.2)
[2023-11-27] MEDS ORDERED: ZYRTEC10 MG PO (14:54)
[2023-11-27] MEDS ORDERED: PROAIR HFA IN (14:54)
[2023-11-27] MEDS ORDERED: BENZONATATE200 MG PO (14:54)
[2023-11-27] MEDS ORDERED: ZPAK PO (14:54)
[2023-11-27] MEDS ORDERED: MEDDOSEPAK PO (14:54)
[2023-11-27] MEDS ORDERED: INSULIN REGULAR (HUMAN) 100 UNIT/ML INJ IV ONE (14:55)
[2023-11-27 15:14] VITALS: BP 136/82
== END 2023-11-27 15:14 | disposition home or self-care (01) ==
LOC: ED 12:13
PROVIDERS: Family Medicine
DX: J44.1 Chronic obstructive pulmonary disease with (acute) exacerbation (principal); E11.65 Type 2 diabetes mellitus with hyperglycemia; I11.0 Hypertensive heart disease with heart failure; I50.9 Heart failure, unspecified; E03.9 Hypothyroidism, unspecified; D57.3 Sickle-cell trait; F17.200 Nicotine dependence, unspecified, uncomplicated; T48.996A Underdosing of other agents primarily acting on the respiratory system, initial encounter; Z91.128 Patient's intentional underdosing of medication regimen for other reason; Z79.4 Long term (current) use of insulin; Z20.822 Contact with and (suspected) exposure to COVID-19

== ENCOUNTER 2024-07-18 07:04 | Emergency (ER) | payer OTHER ==
[~2024-07-18] VITALS: Ht 160 cm; Wt 88.0 kg
[~2024-07-18 07:04] MED LIST changes: +ALBUTEROL SUL1.25 MG IN; +BENZONATATE200 MG PO; +LEVEMIR100 UNIT SC; +PROAIR HFA IN; +PROVENTIL HFA108 MCG IN; +ZYRTEC10 MG PO
[2024-07-18 07:15] VITALS: BP 157/85
[2024-07-18] MEDS ORDERED: LEVEMIR100 UNIT SC ×2 (07:39)
[2024-07-18 08:03] VITALS: BP 157/85
== END 2024-07-18 08:03 | disposition home or self-care (01) ==
LOC: ED 07:04
DX: E11.65 Type 2 diabetes mellitus with hyperglycemia (principal); I11.0 Hypertensive heart disease with heart failure; I50.9 Heart failure, unspecified; J44.9 Chronic obstructive pulmonary disease, unspecified; E03.9 Hypothyroidism, unspecified; F17.200 Nicotine dependence, unspecified, uncomplicated; Z79.4 Long term (current) use of insulin; Z79.85 Long-term (current) use of injectable non-insulin antidiabetic drugs

== ENCOUNTER 2024-10-11 16:23 | Emergency (ER) | payer OTHER ==
[~2024-10-11] VITALS: Ht 160 cm; Wt 107.3 kg
[2024-10-11 16:31] VITALS: BP 122/98
[2024-10-11 16:46] VITALS: BP 124/76
[2024-10-11 17:21] LABS: BASO% 0.2 % (0-3); EOS% 0.9 % (0-8); HEMATOCRIT 34.8 % (37.0-47.0); HEMOGLOBIN 11.6 g/dl (12.0-16.0); IMMATURE GRANULOCYTES 0.2 % (0.0-5.0); LYMPH% 43.3 % (15-41); MEAN CELL VOLUME 79.5 fL CALC (80.0-100.0); MEAN CORPUSCULAR HGB 26.5 pG CALC (26.0-32.0); MEAN CORPUSCULAR HGB CONC 33.3 g/dL CAL (32.0-36.0); MONO% 5.9 % (2-13); NEUT# 2.61 thou/uL (2.00-7.15); NEUT% 49.5 % (42-76); RED BLOOD COUNT 4.38 mill/uL (4.20-5.60); RED CELL DISTRI WIDTH 12.7 % (11.5-15.5)
[2024-10-11 17:31] LABS: URINE BILIRUBIN - DIPSTICK Negative (NEGATIVE); URINE BLOOD DIPSTICK Negative (NEGATIVE); URINE GLUCOSE - DIPSTICK Negative (NEGATIVE); URINE KETONE Negative (NEGATIVE); URINE LEUK ESTERASE Trace (NEGATIVE); URINE PH 5.5 (4.5-8.0); URINE PROTEIN - DIPSTICK Negative (NEG-TRACE); URINE SPECIFIC GRAVITY 1.015; URINE UROBILINOGEN - DIPSTICK 0.2 E.U./dL (0.2)
[2024-10-11 17:36] LABS: ALBUMIN 3.9 g/dL (3.2-5.0); ALKALINE PHOSPHATASE 54 u/l (38-126); ANION GAP 10 (6-22 (CALC)); BILIRUBIN, TOTAL 0.6 mg/dL (0.02-1.3); BUN 27 mg/dL (8-23); BUN/CREATININE RATIO 21 (12-20 (CALC)); CHLORIDE 114 mmol/l (95-108); CREATININE 1.3 mg/dL (0.5-1.0); ESTIMATED GFR 46 ML/MIN (>=90 (CALC)); POTASSIUM 3.7 mmol/l (3.5-5.1); SGOT/AST 34 u/l (9-36); SODIUM 144 mmol/l (137-146); TOTAL PROTEIN 6.9 g/dL (6.3-8.2)
[2024-10-11 17:39] LABS: CARBON DIOXIDE 24 mmol/l (22-30)
[2024-10-11 17:46] LABS: URINE COLOR Yellow; URINE NITRITE - DIPSTICK Positive (Negative)
[2024-10-11 17:49] LABS: URINE BACTERIA MANY hpf; URINE RBC 0-2 RBC/hpf (0-5); URINE SQUAMOUS EPITHELIAL CELL MODERATE EPI/hpf (0-FEW)
[2024-10-11 18:56] VITALS: BP 131/94
[2024-10-11 19:00] VITALS: BP 141/75
[2024-10-11 19:15] VITALS: BP 129/82
[2024-10-11] MEDS ORDERED: LACTULOSE 20 GM/30 ML UDC PO ONE (19:55)
[2024-10-11] MEDS ORDERED: MAGNESIUM HYDROXIDE 30 ML UDC PO ONE (19:55)
[2024-10-11] MEDS ORDERED: Polyethylene Glycol 3350 17 GM/PKT PO ONE (19:55)
[2024-10-11] MEDS ORDERED: MIRALAX17 GM PO (19:58)
[2024-10-11] MEDS ORDERED: SULFAMETHOXAZOLE W/TRIMETHOPRI 1 COMBO TAB PO ONE (20:10)
[2024-10-11] MEDS ORDERED: BACTRIM DS1 TAB PO (20:21)
[2024-10-11 20:31] VITALS: BP 129/82
[2024-10-13] MEDS ORDERED: MACROBID100 M1 PO (12:31)
--- NOTE | 2024-10-14 13:37 | NUR ---
Urine culture result from 10/13 showed E.coli resistant to Bactrim. New prescription for nitrofurantoin 100 mg bid x 5 days sent to [facility]. Unable to reach patient, number not in service. Spoke to [facility], who will be delivering patient's medications today, including nitrofurantoin. Will instruct patient to stop Bactrim and start nitrofurantoin. Provided [facility] pharmacy number if questions.
--- NOTE | 2024-10-14 14:11 | NUR ---
Spoke to patient. New prescription received. Patient verbalized understanding and has no questions at this time.
== END 2024-10-11 20:31 | disposition home or self-care (01) ==
LOC: ED 16:23
PROVIDERS: Nurse Practitioner
DX: K59.00 Constipation, unspecified (principal); R06.02 Shortness of breath; N39.0 Urinary tract infection, site not specified; B96.20 Unspecified Escherichia coli [E. coli] as the cause of diseases classified elsewhere; I11.0 Hypertensive heart disease with heart failure; I50.9 Heart failure, unspecified; E11.9 Type 2 diabetes mellitus without complications; J44.9 Chronic obstructive pulmonary disease, unspecified; E03.9 Hypothyroidism, unspecified; G47.30 Sleep apnea, unspecified; F17.200 Nicotine dependence, unspecified, uncomplicated; Z79.4 Long term (current) use of insulin
CPT/HCPCS: Q9967